=== PATIENT | female | born 1980 | race Caucasian/White ===

== ENCOUNTER → 2018-03-09 13:02 | Outpatient (CLI) | payer OTHER, SELFPAY ==
[2018-03-09 13:52] LABS: Add Manual Diff / Slide Review NO; Basophils Percent Auto 0.7 % (0-2); Eosinophils Percent Auto 1.6 % (2-4); Hematocrit 38.5 % (36-46); Hemoglobin 13.1 g/dL (12.0-16.0); Mean Corpuscular HGB Conc 34.1 % (30-36); Mean Corpuscular Hemoglobin 26.8 PG (26-34); Mean Corpuscular Volume 78.6 fL (80-100); Monocytes Percent Auto 6.7 % (3-14); Neutrophils Absolute Auto 5200 /uL (3000-5900); Platelet Count 292 X10^3/uL (150-400); Red Cell Distribution Width 14.1 % (11.6-14.8); White Blood Cell Count 8.7 X10^3/uL (4.5-11.0)
== END ==
PROVIDERS: PCP Internal Medicine; Visit Provider Specialist
DX: Z01.818 Encounter for other preprocedural examination (principal)
CPT/HCPCS: 36415; 85025

== ENCOUNTER → 2018-03-18 14:28 | Outpatient (CLI) | payer OTHER, SELFPAY ==
[2018-03-11 11:50] VITALS: BMI 41.1
[2018-03-18 15:00] LABS: Add Manual Diff / Slide Review NO; Eosinophils Percent Auto 2.1 % (2-4); Hematocrit 37.1 % (36-46); Hemoglobin 12.8 g/dL (12.0-16.0); Lymphocytes Percent Auto 29.9 % (25-40); Mean Corpuscular HGB Conc 34.6 % (30-36); Mean Corpuscular Hemoglobin 27.2 PG (26-34); Mean Corpuscular Volume 78.6 fL (80-100); Monocytes Percent Auto 6.3 % (3-14); Neutrophils Absolute Auto 4800 /uL (3000-5900); Neutrophils Percent Auto 60.7 % (50-75); Platelet Count 290 X10^3/uL (150-400); Red Blood Cell Count 4.71 X10^6/uL (4.0-5.2); Red Cell Distribution Width 14.1 % (11.6-14.8); White Blood Cell Count 7.8 X10^3/uL (4.5-11.0)
[2018-03-18 15:04] LABS: Alanine Aminotransferase 29 IU/L (9-52); Albumin 4.2 g/dL (3.5-5.0); Albumin Globulin Ratio 1.6 (1.0-2.8); Alkaline Phosphatase 70 U/L (38-126); Aspartate Aminotransferase 18 IU/L (14-36); BUN Creatinine Ratio 14.3 (6-22); Bilirubin Total 0.5 mg/dL (0.2-1.3); Blood Urea Nitrogen 10 mg/dL (7-17); Calcium 9.1 mg/dL (8.4-10.2); Carbon Dioxide 27 mmol/L (22-32); Chloride 100 mmol/L (98-107); Estimated Glomerular Filt Rate > 60.0 mL/min (>60); Globulin 2.7 g/dL (1.7-4.1); Glucose 91 mg/dL (70-100); HEMOLYSIS < 15 (0-50); Potassium 4.6 mmol/L (3.4-5.1); Sodium 139 mmol/L (137-145); Total Protein 6.9 g/dL (6.3-8.2)
== END ==
PROVIDERS: PCP Internal Medicine; Visit Provider Specialist
DX: R50.82 Postprocedural fever (principal); G89.18 Other acute postprocedural pain; R10.9 Unspecified abdominal pain
CPT/HCPCS: 36415; 80053; 85025

== ENCOUNTER 2018-03-29 18:39 | Emergency (ER) | payer OTHER, SELFPAY ==
[2018-03-11 11:50] VITALS: BMI 41.1
[2018-03-29 18:51] VITALS: BP 115/74; PULSE 84; RESP 20; TEMP 36.4; O2SAT 98; BMI 35.2
--- NOTE | 2018-03-29 19:08 | ED.ABDPAIN ---
HPI - Abdominal Pain <Marysol Woodruff PA-C - Last Filed: 03/29/18 22:46> General Chief Complaint: Abdominal Pain Stated Complaint: UPPER ABDOMINAL PAIN AND BLOATING Time Seen by Provider: 03/29/18 19:08 Source: patient and family Mode of arrival: ambulatory Limitations: no limitations History of Present Illness HPI narrative: This 37-year-old female comes in today due to worsening abdominal pain and swelling along with nausea. She states that she had a laparoscopic hysterectomy, with only the right ovary left about 2 and half weeks ago. She states that she has had some persistent pain and fevers up to 100 since then but felt like she was doing okay until about 9 or 10 last night when she began to have worsening abdominal pain and felt like her belly was swollen. She states that she awoke at 2:00 a.m. and could walk because the pain was so severe. She took her oxycodone, ibuprofen, as well as trying Gas-X, Tums, and Zantac without relief. She finally went back to bed and states pain was a little bit better when she woke up this morning, but then has been gradually worsening until now. She states the pain is similar to when she had appendicitis at 7 months , in the midline and right upper quadrant, worse with trying to move around. She has had persistent nausea but no vomiting today. She states that she has had some sensation of bladder fullness and spasm since her hysterectomy but denies any acute dysuria or hematuria. She had a normal bowel movement today. She denies any chest pain or dyspnea. She states at times it feels like pain can radiate into her back. She did eat some white rice and small amount of pot tight noodles at 4:00 p.m. and states that this did not worsen or improve pain, but just has no appetite. She has been tolerating fluids today. Related Data Home Medications Medication Instructions Recorded Confirmed cholecalciferol (vitamin D3) 4,000 unit PO Q DAY #0 08/13/17 03/18/18 [Vitamin D3] cyclobenzaprine 20 mg PO PRN PRN #0 11/12/17 03/18/18 acetazolamide [Diamox Sequels] 500 mg PO QID #0 01/24/18 03/18/18 duloxetine 30 mg PO QDAY #0 01/24/18 03/18/18 prazosin 2 mg PO TID #0 01/24/18 03/18/18 ibuprofen 600 mg PO Q6HP PRN 03/11/18 03/18/18 Previous Rx's Medication Instructions Recorded oxycodone-acetaminophen 5 mg-325 2 tab PO Q4-6H PRN #40 tab 03/22/18 mg tablet Allergies Allergy/AdvReac Type Severity Reaction Status Date / Time aspirin [ASPIRIN] Allergy Mild HIVES, Verified 03/18/18 13:57 NAUSEA Review of Systems <Marysol Woodruff PA-C - Last Filed: 03/29/18 22:46> Review of Systems All systems reviewed & are unremarkable except as noted in HPI and below Exam <Marysol Woodruff PA-C - Last Filed: 03/29/18 22:46> Narrative Exam Narrative: GENERAL APPEARANCE: Patient sitting comfortably, in no distress. HEENT: PERRL, EOMI, no scleral icterus NECK: Supple LUNGS: Clear to auscultation bilaterally. HEART: Rate and rhythm regular, normal S1 and S2, no S3 or S4. ABDOMEN: Soft, enlarged abdomen without tense distention, bowel sounds present x 4 quadrants, no masses palpable, she has moderate left upper quadrant tenderness, increased midline to right upper quadrant tenderness with +rebound, +Rovsing, obturator, kenji signs and negative psoas. No tenderness over the lower quadrants or pelvis EXTREMITIES: No edema, no cyanosis DERMATOLOGIC: No jaundice or exanthem NEUROLOGIC: Alert and oriented with normal speech and coordination Initial Vital Signs Initial Vital Signs: Vital Signs Temperature 97.6 F 03/29/18 18:51 Pulse Rate 84 03/29/18 18:51 Respiratory Rate 20 03/29/18 18:51 Blood Pressure 115/74 03/29/18 18:51 Pulse Oximetry 98 03/29/18 18:51 <Anson Lai DO - Last Filed: 03/30/18 01:03> Initial Vital Signs Initial Vital Signs: Vital Signs Temperature 97.6 F 03/29/18 18:51 Pulse Rate 84 03/29/18 18:51 Respiratory Rate 20 03/29/18 18:51 Blood Pressure 115/74 03/29/18 18:51 Pulse Oximetry 98 03/29/18 18:51 Course <PRICILA Burton Last Filed: 03/29/18 22:46> Hospital Course: On reassessment patient reported nausea resolved and abdominal pain significantly improved but still present. Appeared less tender on exam. She was reassessed with Dr. Lai who agrees with following plan. Essentially normal lab workup and CT findings were reviewed. It does not appear there is any acute surgical issue or reason for hospitalization tonight. Patient is tolerating fluid and crackers prior to discharge. Discussed the importance of close follow-up on this and needs to be seen at PCP office tomorrow. Discussed she may need further workup including GI consultation. Reviewed importance of return if she has any acutely worsening symptoms again and she is agreeable Orders Ordered: ED Orders 03/29/18 19:23 Complete Blood Count AUTO DIFF Stat 03/29/18 19:24 CT abdomen pelvis w con Stat 03/29/18 19:30 Comprehensive Metabolic Panel Stat Lipase Stat Procalcitonin Stat 03/29/18 20:30 Lactate (Lactic Acid) Stat Discontinued Medications Cefazolin Sodium (Keflex) 1 bottle MISC SEEINSTR ONE Stop: 03/29/18 21:30 Hydromorphone HCl (Dilaudid) 1 mg IV Q15M SUSY Stop: 03/29/18 19:46 Last Admin: 03/29/18 19:45 Dose: 1 mg Sodium Chloride (Normal Saline 0.9%) 500 mls @ 1,000 mls/hr IV BOLUS ONE Stop: 03/29/18 19:52 Last Infusion: 03/29/18 22:03 Dose: 0 mls/hr Admin: 03/29/18 19:44 Dose: 1,000 mls/hr Ketorolac Tromethamine (Toradol) 30 mg IV NOW ONE Stop: 03/29/18 19:24 Last Admin: 03/29/18 20:08 Dose: 30 mg Ondansetron HCl (Zofran) 4 mg IV NOW ONE Stop: 03/29/18 19:24 Last Admin: 03/29/18 19:44 Dose: 4 mg Vital Signs - 8 hr 03/29/18 18:51 03/29/18 20:50 03/29/18 22:46 Temperature 97.6 F 98.2 F Pulse Rate 84 81 81 Respiratory Rate 20 18 20 Blood Pressure 115/74 118/74 Blood Pressure [Right Arm] 112/63 Pulse Oximetry 98 100 98 <Anson Lai DO - Last Filed: 03/30/18 01:03> Orders Ordered: ED Orders 03/29/18 19:23 Complete Blood Count AUTO DIFF Stat 03/29/18 19:24 CT abdomen pelvis w con Stat 03/29/18 19:30 Comprehensive Metabolic Panel Stat Lipase Stat Procalcitonin Stat 03/29/18 20:30 Lactate (Lactic Acid) Stat Discontinued Medications Cefazolin Sodium (Keflex) 1 bottle MISC SEEINSTR ONE Stop: 03/29/18 21:30 Hydromorphone HCl (Dilaudid) 1 mg IV Q15M SUSY Stop: 03/29/18 19:46 Last Admin: 03/29/18 19:45 Dose: 1 mg Sodium Chloride (Normal Saline 0.9%) 500 mls @ 1,000 mls/hr IV BOLUS ONE Stop: 03/29/18 19:52 Last Infusion: 03/29/18 22:03 Dose: 0 mls/hr Admin: 03/29/18 19:44 Dose: 1,000 mls/hr Ketorolac Tromethamine (Toradol) 30 mg IV NOW ONE Stop: 03/29/18 19:24 Last Admin: 03/29/18 20:08 Dose: 30 mg Ondansetron HCl (Zofran) 4 mg IV NOW ONE Stop: 03/29/18 19:24 Last Admin: 03/29/18 19:44 Dose: 4 mg Vital Signs - 8 hr 03/29/18 18:51 03/29/18 20:50 03/29/18 22:46 Temperature 97.6 F 98.2 F Pulse Rate 84 81 81 Respiratory Rate 20 18 20 Blood Pressure 115/74 118/74 Blood Pressure [Right Arm] 112/63 Pulse Oximetry 98 100 98 MDM - Abdominal Pain <Marysol Woodruff PA-C - Last Filed: 03/29/18 22:46> Lab Data Attestation: I reviewed the patient's lab results. POC urinalysis WNL Result diagrams: 03/29/18 19:23 03/29/18 19:30 Lab Results 03/29/18 03/29/18 03/29/18 Range/Units 19:23 19:30 19:30 WBC 6.8 (4.5-11.0) X10^3/uL RBC 4.54 (4.0-5.2) X10^6/uL Hgb 12.1 (12.0-16.0) g/dL Hct 35.8 L (36-46) % MCV 78.8 L (80-100) fL MCH 26.5 (26-34) PG MCHC 33.7 (30-36) % RDW 14.0 (11.6-14.8) % Plt Count 286 (150-400) X10^3/uL Neut % (Auto) 52.9 (50-75) % Lymph % (Auto) 36.4 (25-40) % Runnels % (Auto) 8.3 (3-14) % Eos % (Auto) 1.9 L (2-4) % Baso % (Auto) 0.5 (0-2) % Neut # (Auto) 3600 (1865-1713) /uL Sodium 142 (137-145) mmol/L Potassium 3.8 (3.4-5.1) mmol/L Chloride 102 (98-107) mmol/L Carbon Dioxide 29 (22-32) mmol/L BUN 10 (7-17) mg/dL Creatinine 0.60 (0.52-1.04) mg/dL Estimated GFR > 60.0 (>60) mL/min BUN/Creatinine Ratio 16.7 (6-22) Glucose 99 (70-100) mg/dL Lactate (0.7-2.1) mmol/L Calcium 8.8 (8.4-10.2) mg/dL Total Bilirubin 0.5 (0.2-1.3) mg/dL AST 26 (14-36) IU/L ALT 29 (9-52) IU/L Alkaline Phosphatase 61 (38-126) U/L Total Protein 6.9 (6.3-8.2) g/dL Albumin 4.0 (3.5-5.0) g/dL Globulin 2.9 (1.7-4.1) g/dL Albumin/Globulin Ratio 1.4 (1.0-2.8) Lipase 59 (23-300) U/L Procalcitonin < 0.05 (<0.5) ng/mL 03/29/18 Range/Units 20:30 WBC (4.5-11.0) X10^3/uL RBC (4.0-5.2) X10^6/uL Hgb (12.0-16.0) g/dL Hct (36-46) % MCV (80-100) fL MCH (26-34) PG MCHC (30-36) % RDW (11.6-14.8) % Plt Count (150-400) X10^3/uL Neut % (Auto) (50-75) % Lymph % (Auto) (25-40) % Runnels % (Auto) (3-14) % Eos % (Auto) (2-4) % Baso % (Auto) (0-2) % Neut # (Auto) (6525-2422) /uL Sodium (137-145) mmol/L Potassium (3.4-5.1) mmol/L Chloride (98-107) mmol/L Carbon Dioxide (22-32) mmol/L BUN (7-17) mg/dL Creatinine (0.52-1.04) mg/dL Estimated GFR (>60) mL/min BUN/Creatinine Ratio (6-22) Glucose (70-100) mg/dL Lactate 0.6 L (0.7-2.1) mmol/L Calcium (8.4-10.2) mg/dL Total Bilirubin (0.2-1.3) mg/dL AST (14-36) IU/L ALT (9-52) IU/L Alkaline Phosphatase (38-126) U/L Total Protein (6.3-8.2) g/dL Albumin (3.5-5.0) g/dL Globulin (1.7-4.1) g/dL Albumin/Globulin Ratio (1.0-2.8) Lipase (23-300) U/L Procalcitonin (<0.5) ng/mL Imaging Data CT scan - abdomen: Radiologist's impression: View Report History [address] [address] [address] Scan Report Signed Patient: Minesh Akers MR#: [id number] : 1980 Acct:[id number] Age/Sex: 37 / F Date of Service: 03/29/18 Loc: ED Accession Number: [id number] Procedure: CT abdomen pelvis w con Ordering Provider: Fishfader,Marysol A P.A-C PROCEDURE: CT ABDOMEN PELVIS W CON INDICATIONS: pain, swelling, nausea, fever. Mid, RUQ. s/p hyst TECHNIQUE: After the administration of oral and intravenous contrast, 5 mm thick sections acquired from the diaphragms to the symphysis. 5 mm thick coronal and sagittal reformats were performed. For radiation dose reduction, the following was used: automated exposure control, adjustment of mA and/or kV according to patient size. COMPARISON: None. FINDINGS: Image quality: Excellent. ABDOMEN: Lung bases: Lung bases are clear. Heart size is normal. Solid organs: Liver is normal in size and enhancement. Gallbladder appears normal, largely contracted. Biliary system is non-dilated. Pancreas enhances normally. Spleen is normal in size and enhancement. No adrenal nodules. Kidneys are normal in size and enhancement, without hydronephrosis. Peritoneum and bowel: Stomach, small bowel, and colon loops are normal in caliber and wall thickness. No free fluid or air. Nodes and vessels: No retroperitoneal or mesenteric adenopathy. Aorta and inferior vena cava are normal in caliber. Miscellaneous: No ventral hernias. PELVIS: Genitourinary: Bladder wall thickness is normal. Miscellaneous: No inguinal hernias or adenopathy. Left duct region spinal electrode stimulator control device noted with leads extending cephalad. Bones: No suspicious bony lesions. No vertebral body compression fractures. IMPRESSION: No inflammation is seen through the pelvis or abdomen, source of current pain is not found. Normal bowel gas pattern, no free fluid seen. Dictated by: Edward Núñez M.D. on 03/29/2018 at 21:48 Approved by: Edward Núñez M.D. on 03/29/2018 at 21:50 <Anson Lai DO - Last Filed: 03/30/18 01:03> Lab Data Lab Results 03/29/18 03/29/18 03/29/18 Range/Units 19:23 19:30 19:30 WBC 6.8 (4.5-11.0) X10^3/uL RBC 4.54 (4.0-5.2) X10^6/uL Hgb 12.1 (12.0-16.0) g/dL Hct 35.8 L (36-46) % MCV 78.8 L (80-100) fL MCH 26.5 (26-34) PG MCHC 33.7 (30-36) % RDW 14.0 (11.6-14.8) % Plt Count 286 (150-400) X10^3/uL Neut % (Auto) 52.9 (50-75) % Lymph % (Auto) 36.4 (25-40) % Runnels % (Auto) 8.3 (3-14) % Eos % (Auto) 1.9 L (2-4) % Baso % (Auto) 0.5 (0-2) % Neut # (Auto) 3600 (5588-9973) /uL Sodium 142 (137-145) mmol/L Potassium 3.8 (3.4-5.1) mmol/L Chloride 102 (98-107) mmol/L Carbon Dioxide 29 (22-32) mmol/L BUN 10 (7-17) mg/dL Creatinine 0.60 (0.52-1.04) mg/dL Estimated GFR > 60.0 (>60) mL/min BUN/Creatinine Ratio 16.7 (6-22) Glucose 99 (70-100) mg/dL Lactate (0.7-2.1) mmol/L Calcium 8.8 (8.4-10.2) mg/dL Total Bilirubin 0.5 (0.2-1.3) mg/dL AST 26 (14-36) IU/L ALT 29 (9-52) IU/L Alkaline Phosphatase 61 (38-126) U/L Total Protein 6.9 (6.3-8.2) g/dL Albumin 4.0 (3.5-5.0) g/dL Globulin 2.9 (1.7-4.1) g/dL Albumin/Globulin Ratio 1.4 (1.0-2.8) Lipase 59 (23-300) U/L Procalcitonin < 0.05 (<0.5) ng/mL 03/29/18 Range/Units 20:30 WBC (4.5-11.0) X10^3/uL RBC (4.0-5.2) X10^6/uL Hgb (12.0-16.0) g/dL Hct (36-46) % MCV (80-100) fL MCH (26-34) PG MCHC (30-36) % RDW (11.6-14.8) % Plt Count (150-400) X10^3/uL Neut % (Auto) (50-75) % Lymph % (Auto) (25-40) % Runnels % (Auto) (3-14) % Eos % (Auto) (2-4) % Baso % (Auto) (0-2) % Neut # (Auto) (6702-0430) /uL Sodium (137-145) mmol/L Potassium (3.4-5.1) mmol/L Chloride (98-107) mmol/L Carbon Dioxide (22-32) mmol/L BUN (7-17) mg/dL Creatinine (0.52-1.04) mg/dL Estimated GFR (>60) mL/min BUN/Creatinine Ratio (6-22) Glucose (70-100) mg/dL Lactate 0.6 L (0.7-2.1) mmol/L Calcium (8.4-10.2) mg/dL Total Bilirubin (0.2-1.3) mg/dL AST (14-36) IU/L ALT (9-52) IU/L Alkaline Phosphatase (38-126) U/L Total Protein (6.3-8.2) g/dL Albumin (3.5-5.0) g/dL Globulin (1.7-4.1) g/dL Albumin/Globulin Ratio (1.0-2.8) Lipase (23-300) U/L Procalcitonin (<0.5) ng/mL Discharge Plan Departure Patient Disposition: Home, Self-Care Clinical Impression: Abdominal pain, Abdominal distension Discharge Date/Time: 03/29/18 22:46 Interventions: ED Discharge Assessment Last Done: 03/29/18 22:46 Activity Restrictions/Additional Instructions: Return as we talked about if you have any acutely worsening symptoms, otherwise call your PCP office 1st thing in the morning and you should be seen for follow-up tomorrow. As we discussed, we need to follow abdominal pain very closely, so you should be seen tomorrow and you may need a referral to a GI specialist for further testing. Continue your pain medicine that you have at home as well as ibuprofen and you can take your Zofran as needed for nausea. Prescriptions: No Action cholecalciferol (vitamin D3) [Vitamin D3] 2,000 UNIT capsule 4,000 unit PO Q DAY Qty: 0 RF: 0 cyclobenzaprine 10 MG tablet 20 mg PO PRN PRN (Reason: Anxiety) Qty: 0 RF: 0 prazosin 1 MG capsule 2 mg PO TID Qty: 0 RF: 0 duloxetine 30 MG capsule,delayed release(DR/EC) 30 mg PO QDAY Qty: 0 RF: 0 acetazolamide [Diamox Sequels] 500 MG capsule, extended release 500 mg PO QID Qty: 0 RF: 0 oxycodone-acetaminophen 5-325 mg tablet 2 tab PO Q4-6H PRN (Reason: pain) Qty: 40 RF: 0 ibuprofen 600 MG tablet 600 mg PO Q6HP PRN (Reason: Pain (Scale Score 1-3)) RF: 0 Referrals: Unique Isbell MD [Primary Care Provider] - Martine Rogers MD [Physician] - <Anson Lai DO - Last Filed: 03/30/18 01:03> Cosign ED Attending Rheaature Attestation: I was available for consultation during this patient's emergency department encounter
--- NOTE | 2018-03-29 19:24 | DI.CT.S_ITS ---
PROCEDURE: CT ABDOMEN PELVIS W CON INDICATIONS: pain, swelling, nausea, fever. Mid, RUQ. s/p hyst TECHNIQUE: After the administration of oral and intravenous contrast, 5 mm thick sections acquired from the diaphragms to the symphysis. 5 mm thick coronal and sagittal reformats were performed. For radiation dose reduction, the following was used: automated exposure control, adjustment of mA and/or kV according to patient size. COMPARISON: None. FINDINGS: Image quality: Excellent. ABDOMEN: Lung bases: Lung bases are clear. Heart size is normal. Solid organs: Liver is normal in size and enhancement. Gallbladder appears normal, largely contracted. Biliary system is non-dilated. Pancreas enhances normally. Spleen is normal in size and enhancement. No adrenal nodules. Kidneys are normal in size and enhancement, without hydronephrosis. Peritoneum and bowel: Stomach, small bowel, and colon loops are normal in caliber and wall thickness. No free fluid or air. Nodes and vessels: No retroperitoneal or mesenteric adenopathy. Aorta and inferior vena cava are normal in caliber. Miscellaneous: No ventral hernias. PELVIS: Genitourinary: Bladder wall thickness is normal. Miscellaneous: No inguinal hernias or adenopathy. Left duct region spinal electrode stimulator control device noted with leads extending cephalad. Bones: No suspicious bony lesions. No vertebral body compression fractures. IMPRESSION: No inflammation is seen through the pelvis or abdomen, source of current pain is not found. Normal bowel gas pattern, no free fluid seen. Dictated by: Edward Núñez M.D. on 03/29/2018 at 21:48 Approved by: Edward Núñez M.D. on 03/29/2018 at 21:50
--- NOTE | 2018-03-29 19:29 | ED_ITS ---
HPI - Abdominal Pain <Marysol Woodruff PA-C - Last Filed: 03/29/18 22:46> General Chief Complaint: Abdominal Pain Stated Complaint: UPPER ABDOMINAL PAIN AND BLOATING Time Seen by Provider: 03/29/18 19:08 Source: patient and family Mode of arrival: ambulatory Limitations: no limitations History of Present Illness HPI narrative: This 37-year-old female comes in today due to worsening abdominal pain and swelling along with nausea. She states that she had a laparoscopic hysterectomy, with only the right ovary left about 2 and half weeks ago. She states that she has had some persistent pain and fevers up to 100 since then but felt like she was doing okay until about 9 or 10 last night when she began to have worsening abdominal pain and felt like her belly was swollen. She states that she awoke at 2:00 a.m. and could walk because the pain was so severe. She took her oxycodone, ibuprofen, as well as trying Gas-X, Tums , and Zantac without relief. She finally went back to bed and states pain was a little bit better when she woke up this morning, but then has been gradually worsening until now. She states the pain is similar to when she had appendicitis at 7 months , in the midline and right upper quadrant, worse with trying to move around. She has had persistent nausea but no vomiting today. She states that she has had some sensation of bladder fullness and spasm since her hysterectomy but denies any acute dysuria or hematuria. She had a normal bowel movement today. She denies any chest pain or dyspnea. She states at times it feels like pain can radiate into her back. She did eat some white rice and small amount of pot tight noodles at 4:00 p.m. and states that this did not worsen or improve pain, but just has no appetite. She has been tolerating fluids today. Related Data Home Medications Medication Instructions Recorded Confirmed cholecalciferol (vitamin D3) 4,000 unit PO Q DAY #0 08/13/17 03/18/18 [Vitamin D3] cyclobenzaprine 20 mg PO PRN PRN #0 11/12/17 03/18/18 acetazolamide [Diamox Sequels] 500 mg PO QID #0 01/24/18 03/18/18 duloxetine 30 mg PO QDAY #0 01/24/18 03/18/18 prazosin 2 mg PO TID #0 01/24/18 03/18/18 ibuprofen 600 mg PO Q6HP PRN 03/11/18 03/18/18 Previous Rx's Medication Instructions Recorded oxycodone-acetaminophen 5 mg-325 2 tab PO Q4-6H PRN #40 tab 03/22/18 mg tablet Allergies Allergy/AdvReac Type Severity Reaction Status Date / Time aspirin [ASPIRIN] Allergy Mild HIVES, Verified 03/18/18 13:57 NAUSEA Review of Systems <Marysol Woodruff PA-C - Last Filed: 03/29/18 22:46> Review of Systems All systems reviewed & are unremarkable except as noted in HPI and below Exam <Marysol Woodruff PA-C - Last Filed: 03/29/18 22:46> Narrative Exam Narrative: GENERAL APPEARANCE: Patient sitting comfortably, in no distress. HEENT: PERRL, EOMI, no scleral icterus NECK: Supple LUNGS: Clear to auscultation bilaterally. HEART: Rate and rhythm regular, normal S1 and S2, no S3 or S4. ABDOMEN: Soft, enlarged abdomen without tense distention, bowel sounds present x 4 quadrants, no masses palpable, she has moderate left upper quadrant tenderness, increased midline to right upper quadrant tenderness with +rebound, +Rovsing, obturator, kenji signs and negative psoas. No tenderness over the lower quadrants or pelvis EXTREMITIES: No edema, no cyanosis DERMATOLOGIC: No jaundice or exanthem NEUROLOGIC: Alert and oriented with normal speech and coordination Initial Vital Signs Initial Vital Signs: Vital Signs Temperature 97.6 F 03/29/18 18:51 Pulse Rate 84 03/29/18 18:51 Respiratory Rate 20 03/29/18 18:51 Blood Pressure 115/74 03/29/18 18:51 Pulse Oximetry 98 03/29/18 18:51 <Anson Lai DO - Last Filed: 03/30/18 01:03> Initial Vital Signs Initial Vital Signs: Vital Signs Temperature 97.6 F 03/29/18 18:51 Pulse Rate 84 03/29/18 18:51 Respiratory Rate 20 03/29/18 18:51 Blood Pressure 115/74 03/29/18 18:51 Pulse Oximetry 98 03/29/18 18:51 Course <PRICILA Burton Last Filed: 03/29/18 22:46> Hospital Course: On reassessment patient reported nausea resolved and abdominal pain significantly improved but still present. Appeared less tender on exam. She was reassessed with Dr. Lai who agrees with following plan. Essentially normal lab workup and CT findings were reviewed. It does not appear there is any acute surgical issue or reason for hospitalization tonight. Patient is tolerating fluid and crackers prior to discharge. Discussed the importance of close follow-up on this and needs to be seen at PCP office tomorrow. Discussed she may need further workup including GI consultation. Reviewed importance of return if she has any acutely worsening symptoms again and she is agreeable Orders Ordered: ED Orders 03/29/18 19:23 Complete Blood Count AUTO DIFF Stat 03/29/18 19:24 CT abdomen pelvis w con Stat 03/29/18 19:30 Comprehensive Metabolic Panel Stat Lipase Stat Procalcitonin Stat 03/29/18 20:30 Lactate (Lactic Acid) Stat Discontinued Medications Cefazolin Sodium (Keflex) 1 bottle MISC SEEINSTR ONE Stop: 03/29/18 21:30 Hydromorphone HCl (Dilaudid) 1 mg IV Q15M SUSY Stop: 03/29/18 19:46 Last Admin: 03/29/18 19:45 Dose: 1 mg Sodium Chloride (Normal Saline 0.9%) 500 mls @ 1,000 mls/hr IV BOLUS ONE Stop: 03/29/18 19:52 Last Infusion: 03/29/18 22:03 Dose: 0 mls/hr Admin: 03/29/18 19:44 Dose: 1,000 mls/hr Ketorolac Tromethamine (Toradol) 30 mg IV NOW ONE Stop: 03/29/18 19:24 Last Admin: 03/29/18 20:08 Dose: 30 mg Ondansetron HCl (Zofran) 4 mg IV NOW ONE Stop: 03/29/18 19:24 Last Admin: 03/29/18 19:44 Dose: 4 mg Vital Signs - 8 hr 03/29/18 18:51 03/29/18 20:50 03/29/18 22:46 Temperature 97.6 F 98.2 F Pulse Rate 84 81 81 Respiratory Rate 20 18 20 Blood Pressure 115/74 118/74 Blood Pressure [Right Arm] 112/63 Pulse Oximetry 98 100 98 <Anson Lai DO - Last Filed: 03/30/18 01:03> Orders Ordered: ED Orders 03/29/18 19:23 Complete Blood Count AUTO DIFF Stat 03/29/18 19:24 CT abdomen pelvis w con Stat 03/29/18 19:30 Comprehensive Metabolic Panel Stat Lipase Stat Procalcitonin Stat 03/29/18 20:30 Lactate (Lactic Acid) Stat Discontinued Medications Cefazolin Sodium (Keflex) 1 bottle MISC SEEINSTR ONE Stop: 03/29/18 21:30 Hydromorphone HCl (Dilaudid) 1 mg IV Q15M SUSY Stop: 03/29/18 19:46 Last Admin: 03/29/18 19:45 Dose: 1 mg Sodium Chloride (Normal Saline 0.9%) 500 mls @ 1,000 mls/hr IV BOLUS ONE Stop: 03/29/18 19:52 Last Infusion: 03/29/18 22:03 Dose: 0 mls/hr Admin: 03/29/18 19:44 Dose: 1,000 mls/hr Ketorolac Tromethamine (Toradol) 30 mg IV NOW ONE Stop: 03/29/18 19:24 Last Admin: 03/29/18 20:08 Dose: 30 mg Ondansetron HCl (Zofran) 4 mg IV NOW ONE Stop: 03/29/18 19:24 Last Admin: 03/29/18 19:44 Dose: 4 mg Vital Signs - 8 hr 03/29/18 18:51 03/29/18 20:50 03/29/18 22:46 Temperature 97.6 F 98.2 F Pulse Rate 84 81 81 Respiratory Rate 20 18 20 Blood Pressure 115/74 118/74 Blood Pressure [Right Arm] 112/63 Pulse Oximetry 98 100 98 MDM - Abdominal Pain <Marysol Woodruff PA-C - Last Filed: 03/29/18 22:46> Lab Data Attestation: I reviewed the patient's lab results. POC urinalysis WNL Result diagrams: 03/29/18 19:23 03/29/18 19:30 Lab Results 03/29/18 03/29/18 03/29/18 Range/Units 19:23 19:30 19:30 WBC 6.8 (4.5-11.0) X10^3/uL RBC 4.54 (4.0-5.2) X10^6/uL Hgb 12.1 (12.0-16.0) g/dL Hct 35.8 L (36-46) % MCV 78.8 L (80-100) fL MCH 26.5 (26-34) PG MCHC 33.7 (30-36) % RDW 14.0 (11.6-14.8) % Plt Count 286 (150-400) X10^3/uL Neut % (Auto) 52.9 (50-75) % Lymph % (Auto) 36.4 (25-40) % [place] % (Auto) 8.3 (3-14) % Eos % (Auto) 1.9 L (2-4) % Baso % (Auto) 0.5 (0-2) % Neut # (Auto) 3600 (9140-9723) /uL Sodium 142 (137-145) mmol/L Potassium 3.8 (3.4-5.1) mmol/L Chloride 102 (98-107) mmol/L Carbon Dioxide 29 (22-32) mmol/L BUN 10 (7-17) mg/dL Creatinine 0.60 (0.52-1.04) mg/dL Estimated GFR > 60.0 (>60) mL/min BUN/Creatinine Ratio 16.7 (6-22) Glucose 99 (70-100) mg/dL Lactate (0.7-2.1) mmol/L Calcium 8.8 (8.4-10.2) mg/dL Total Bilirubin 0.5 (0.2-1.3) mg/dL AST 26 (14-36) IU/L ALT 29 (9-52) IU/L Alkaline Phosphatase 61 (38-126) U/L Total Protein 6.9 (6.3-8.2) g/dL Albumin 4.0 (3.5-5.0) g/dL Globulin 2.9 (1.7-4.1) g/dL Albumin/Globulin Ratio 1.4 (1.0-2.8) Lipase 59 (23-300) U/L Procalcitonin < 0.05 (<0.5) ng/mL 03/29/18 Range/Units 20:30 WBC (4.5-11.0) X10^3/uL RBC (4.0-5.2) X10^6/uL Hgb (12.0-16.0) g/dL Hct (36-46) % MCV (80-100) fL MCH (26-34) PG MCHC (30-36) % RDW (11.6-14.8) % Plt Count (150-400) X10^3/uL Neut % (Auto) (50-75) % Lymph % (Auto) (25-40) % [place] % (Auto) (3-14) % Eos % (Auto) (2-4) % Baso % (Auto) (0-2) % Neut # (Auto) (0172-9460) /uL Sodium (137-145) mmol/L Potassium (3.4-5.1) mmol/L Chloride (98-107) mmol/L Carbon Dioxide (22-32) mmol/L BUN (7-17) mg/dL Creatinine (0.52-1.04) mg/dL Estimated GFR (>60) mL/min BUN/Creatinine Ratio (6-22) Glucose (70-100) mg/dL Lactate 0.6 L (0.7-2.1) mmol/L Calcium (8.4-10.2) mg/dL Total Bilirubin (0.2-1.3) mg/dL AST (14-36) IU/L ALT (9-52) IU/L Alkaline Phosphatase (38-126) U/L Total Protein (6.3-8.2) g/dL Albumin (3.5-5.0) g/dL Globulin (1.7-4.1) g/dL Albumin/Globulin Ratio (1.0-2.8) Lipase (23-300) U/L Procalcitonin (<0.5) ng/mL Imaging Data CT scan - abdomen: Radiologist's impression: View Report History [address] [address] [address] Scan Report Signed Patient: Minesh Akers MR#: [id number] : 1980 Acct:[id number] Age/Sex: 37 / F Date of Service: 03/29/18 Loc: ED Accession Number: [id number] Procedure: CT abdomen pelvis w con Ordering Provider: Fishfader,Marysol A P.A-C PROCEDURE: CT ABDOMEN PELVIS W CON INDICATIONS: pain, swelling, nausea, fever. Mid, RUQ. s/p hyst TECHNIQUE: After the administration of oral and intravenous contrast, 5 mm thick sections acquired from the diaphragms to the symphysis. 5 mm thick coronal and sagittal reformats were performed. For radiation dose reduction, the following was used: automated exposure control, adjustment of mA and/or kV according to patient size. COMPARISON: None. FINDINGS: Image quality: Excellent. ABDOMEN: Lung bases: Lung bases are clear. Heart size is normal. Solid organs: Liver is normal in size and enhancement. Gallbladder appears normal, largely contracted. Biliary system is non-dilated. Pancreas enhances normally. Spleen is normal in size and enhancement. No adrenal nodules. Kidneys are normal in size and enhancement, without hydronephrosis. Peritoneum and bowel: Stomach, small bowel, and colon loops are normal in caliber and wall thickness. No free fluid or air. Nodes and vessels: No retroperitoneal or mesenteric adenopathy. Aorta and inferior vena cava are normal in caliber. Miscellaneous: No ventral hernias. PELVIS: Genitourinary: Bladder wall thickness is normal. Miscellaneous: No inguinal hernias or adenopathy. Left duct region spinal electrode stimulator control device noted with leads extending cephalad. Bones: No suspicious bony lesions. No vertebral body compression fractures. IMPRESSION: No inflammation is seen through the pelvis or abdomen, source of current pain is not found. Normal bowel gas pattern, no free fluid seen. Dictated by: Edward Núñez M.D. on 03/29/2018 at 21:48 Approved by: Edward Núñez M.D. on 03/29/2018 at 21:50 <Anson Lai DO - Last Filed: 03/30/18 01:03> Lab Data Lab Results 03/29/18 03/29/18 03/29/18 Range/Units 19:23 19:30 19:30 WBC 6.8 (4.5-11.0) X10^3/uL RBC 4.54 (4.0-5.2) X10^6/uL Hgb 12.1 (12.0-16.0) g/dL Hct 35.8 L (36-46) % MCV 78.8 L (80-100) fL MCH 26.5 (26-34) PG MCHC 33.7 (30-36) % RDW 14.0 (11.6-14.8) % Plt Count 286 (150-400) X10^3/uL Neut % (Auto) 52.9 (50-75) % Lymph % (Auto) 36.4 (25-40) % [place] % (Auto) 8.3 (3-14) % Eos % (Auto) 1.9 L (2-4) % Baso % (Auto) 0.5 (0-2) % Neut # (Auto) 3600 (0551-4152) /uL Sodium 142 (137-145) mmol/L Potassium 3.8 (3.4-5.1) mmol/L Chloride 102 (98-107) mmol/L Carbon Dioxide 29 (22-32) mmol/L BUN 10 (7-17) mg/dL Creatinine 0.60 (0.52-1.04) mg/dL Estimated GFR > 60.0 (>60) mL/min BUN/Creatinine Ratio 16.7 (6-22) Glucose 99 (70-100) mg/dL Lactate (0.7-2.1) mmol/L Calcium 8.8 (8.4-10.2) mg/dL Total Bilirubin 0.5 (0.2-1.3) mg/dL AST 26 (14-36) IU/L ALT 29 (9-52) IU/L Alkaline Phosphatase 61 (38-126) U/L Total Protein 6.9 (6.3-8.2) g/dL Albumin 4.0 (3.5-5.0) g/dL Globulin 2.9 (1.7-4.1) g/dL Albumin/Globulin Ratio 1.4 (1.0-2.8) Lipase 59 (23-300) U/L Procalcitonin < 0.05 (<0.5) ng/mL 03/29/18 Range/Units 20:30 WBC (4.5-11.0) X10^3/uL RBC (4.0-5.2) X10^6/uL Hgb (12.0-16.0) g/dL Hct (36-46) % MCV (80-100) fL MCH (26-34) PG MCHC (30-36) % RDW (11.6-14.8) % Plt Count (150-400) X10^3/uL Neut % (Auto) (50-75) % Lymph % (Auto) (25-40) % [place] % (Auto) (3-14) % Eos % (Auto) (2-4) % Baso % (Auto) (0-2) % Neut # (Auto) (1931-7426) /uL Sodium (137-145) mmol/L Potassium (3.4-5.1) mmol/L Chloride (98-107) mmol/L Carbon Dioxide (22-32) mmol/L BUN (7-17) mg/dL Creatinine (0.52-1.04) mg/dL Estimated GFR (>60) mL/min BUN/Creatinine Ratio (6-22) Glucose (70-100) mg/dL Lactate 0.6 L (0.7-2.1) mmol/L Calcium (8.4-10.2) mg/dL Total Bilirubin (0.2-1.3) mg/dL AST (14-36) IU/L ALT (9-52) IU/L Alkaline Phosphatase (38-126) U/L Total Protein (6.3-8.2) g/dL Albumin (3.5-5.0) g/dL Globulin (1.7-4.1) g/dL Albumin/Globulin Ratio (1.0-2.8) Lipase (23-300) U/L Procalcitonin (<0.5) ng/mL Discharge Plan Departure Patient Disposition: Home, Self-Care Clinical Impression: Abdominal pain, Abdominal distension Discharge Date/Time: 03/29/18 22:46 Interventions: ED Discharge Assessment Last Done: 03/29/18 22:46 Activity Restrictions/Additional Instructions: Return as we talked about if you have any acutely worsening symptoms, otherwise call your PCP office 1st thing in the morning and you should be seen for follow- up tomorrow. As we discussed, we need to follow abdominal pain very closely, so you should be seen tomorrow and you may need a referral to a GI specialist for further testing. Continue your pain medicine that you have at home as well as ibuprofen and you can take your Zofran as needed for nausea. Prescriptions: No Action cholecalciferol (vitamin D3) [Vitamin D3] 2,000 UNIT capsule 4,000 unit PO Q DAY Qty: 0 RF: 0 cyclobenzaprine 10 MG tablet 20 mg PO PRN PRN (Reason: Anxiety) Qty: 0 RF: 0 prazosin 1 MG capsule 2 mg PO TID Qty: 0 RF: 0 duloxetine 30 MG capsule,delayed release(DR/EC) 30 mg PO QDAY Qty: 0 RF: 0 acetazolamide [Diamox Sequels] 500 MG capsule, extended release 500 mg PO QID Qty: 0 RF: 0 oxycodone-acetaminophen 5-325 mg tablet 2 tab PO Q4-6H PRN (Reason: pain) Qty: 40 RF: 0 ibuprofen 600 MG tablet 600 mg PO Q6HP PRN (Reason: Pain (Scale Score 1-3)) RF: 0 Referrals: Unique Isbell MD [Primary Care Provider] - Martine Rogers MD [Physician] - <Anson Lai DO - Last Filed: 03/30/18 01:03> Cosign ED Attending Rheaature Attestation: I was available for consultation during this patient's emergency department encounter
[2018-03-29] MEDS: SODIUM CHLORIDE 0.9% 500 ML 1000 ML IV (19:44)
[2018-03-29] MEDS: ONDANSETRON 4 MG/2 ML INJ IV (19:44)
[2018-03-29] MEDS: HYDROMORPHONE 1 MG INJ IV (19:45)
[2018-03-29 19:53] LABS: Alanine Aminotransferase 29 IU/L (9-52); Albumin Globulin Ratio 1.4 (1.0-2.8); Alkaline Phosphatase 61 U/L (38-126); Aspartate Aminotransferase 26 IU/L (14-36); BUN Creatinine Ratio 16.7 (6-22); Bilirubin Total 0.5 mg/dL (0.2-1.3); Blood Urea Nitrogen 10 mg/dL (7-17); Calcium 8.8 mg/dL (8.4-10.2); Carbon Dioxide 29 mmol/L (22-32); Chloride 102 mmol/L (98-107); Estimated Glomerular Filt Rate > 60.0 mL/min (>60); Globulin 2.9 g/dL (1.7-4.1); Glucose 99 mg/dL (70-100); HEMOLYSIS < 15 (0-50); Lipase 59 U/L (23-300); Potassium 3.8 mmol/L (3.4-5.1); Sodium 142 mmol/L (137-145); Total Protein 6.9 g/dL (6.3-8.2)
[2018-03-29] MEDS: KETOROLAC 60 MG/2 ML VIAL 30 MG IV (20:08)
[2018-03-29 20:27] LABS: Add Manual Diff / Slide Review NO; Basophils Percent Auto 0.5 % (0-2); Eosinophils Percent Auto 1.9 % (2-4); Hematocrit 35.8 % (36-46); Hemoglobin 12.1 g/dL (12.0-16.0); Lymphocytes Percent Auto 36.4 % (25-40); Mean Corpuscular HGB Conc 33.7 % (30-36); Mean Corpuscular Hemoglobin 26.5 PG (26-34); Mean Corpuscular Volume 78.8 fL (80-100); Monocytes Percent Auto 8.3 % (3-14); Neutrophils Absolute Auto 3600 /uL (3000-5900); Neutrophils Percent Auto 52.9 % (50-75); Platelet Count 286 X10^3/uL (150-400); Red Blood Cell Count 4.54 X10^6/uL (4.0-5.2); White Blood Cell Count 6.8 X10^3/uL (4.5-11.0)
[2018-03-29 20:41] LABS: Lactate (Lactic Acid) 0.6 mmol/L (0.7-2.1)
[2018-03-29 20:50] VITALS: BP 112/63; PULSE 81; RESP 18; O2SAT 100
[2018-03-29 21:31] LABS: Procalcitonin < 0.05 ng/mL (<0.5)
[2018-03-29 22:46] VITALS: BP 118/74; PULSE 81; RESP 20; TEMP 36.8; O2SAT 98
== END 2018-03-29 22:46 | disposition home or self-care (01) ==
PROVIDERS: Emergency Provider Internal Medicine; PCP Internal Medicine
DX: R10.9 Unspecified abdominal pain (principal); R14.0 Abdominal distension (gaseous)
CPT/HCPCS: 74177; 80053; 81003; 83605; 83690; 84145; 85025; 96361; 96374; 96375; 99283; 99285; J1170; J1885; J2405; Q9967